=== PATIENT | male | born 1955 ===

== ENCOUNTER → 2021-03-04 10:30 | Outpatient (BNVA) | payer BC, MEDICARE, SELFPAY | PROVIDERS: Visit Provider Family Medicine Adult Medicine | DX: I73.9 Peripheral vascular disease, unspecified (principal); Z86.79 Personal history of other diseases of the circulatory system | CPT/HCPCS: 99202 ==

== ENCOUNTER → 2021-03-11 08:43 | Outpatient (BNVA) | payer BC, MEDICARE, SELFPAY | PROVIDERS: Visit Provider Family Medicine Adult Medicine | DX: Z13.89 Encounter for screening for other disorder (principal) | CPT/HCPCS: 99212 ==

== ENCOUNTER → 2021-08-10 10:53 | Outpatient (BNVA) | payer BC, MEDICARE, SELFPAY | PROVIDERS: PCP Internal Medicine; Visit Provider Family Medicine Adult Medicine | DX: I73.9 Peripheral vascular disease, unspecified (principal); F11.90 Opioid use, unspecified, uncomplicated; Z86.79 Personal history of other diseases of the circulatory system | CPT/HCPCS: 99212 ==

== ENCOUNTER → 2021-09-07 10:00 | Outpatient (BNVA) | payer BC, MEDICARE, SELFPAY | PROVIDERS: Visit Provider Internal Medicine | DX: G89.4 Chronic pain syndrome (principal); Z79.891 Long term (current) use of opiate analgesic | CPT/HCPCS: 80305; 99202 ==